=== PATIENT | female | born 1990 | race American Indian/Alaskan Native ===

== ENCOUNTER 2017-01-25 10:08 | Emergency (ER) | payer BC, OTHER ==
[2017-01-25 10:45] VITALS: BP 121/75
--- NOTE | 2017-01-25 11:51 | EDM.PDOC ---
ED HPI GENERAL MEDICAL PROBLEM - General Chief Complaint: [employer] Problem Stated Complaint: 10 WEEKS MIRNA [id number] Time Seen by Provider: 01/25/17 11:48 Source of Information: Reports: Patient History Limitations: Reports: No Limitations - History of Present Illness INITIAL COMMENTS - FREE TEXT/NARRATIVE: Patient abdomen pain X 1 week and dark blood started yesterday and bright blood today Onset Date: 01/18/17 Onset Time: 12:00 Duration: Day(s): Location: Reports: Pelvis Quality: Reports: Ache Severity: Moderate Vaginal Pain Score (Numeric/FACES): 3 - Related Data Allergies Allergy/AdvReac Type Severity Reaction Status Date / Time Penicillins Allergy Unknown Rash Verified 09/01/13 05:23 Home Meds: Home Meds . [No Known Home Meds] 09/01/13 [History] Past Medical History HEENT History: Reports: Impaired Vision - Past Surgical History Female Surgical History: Reports: Section, Oophorectomy Social & Family History - Tobacco Use Smoking Status *Q: Never Smoker Second Hand Smoke Exposure: No - Caffeine Use Caffeine Use: Reports: Tea - Alcohol Use Days Per Week of Alcohol Use: 0 - Recreational Drug Use Recreational Drug Use: No ED ROS GENERAL - Review of Systems Review Of Systems: See Below Constitutional: Reports: No Symptoms HEENT: Reports: No Symptoms Respiratory: Reports: No Symptoms Cardiovascular: Reports: No Symptoms Endocrine: Reports: No Symptoms GI/Abdominal: Reports: No Symptoms : Reports: Other (vaginal bleeding) Musculoskeletal: Reports: No Symptoms Skin: Reports: No Symptoms Neurological: Reports: No Symptoms Psychiatric: Reports: No Symptoms Hematologic/Lymphatic: Reports: No Symptoms Immunologic: Reports: No Symptoms ED EXAM - Physical Exam Exam: See Below Exam Limited By: No Limitations General Appearance: Alert, WD/WN, No Apparent Distress Eye Exam: Bilateral Eye: PERRL Ears: Normal External Exam Nose: Normal Inspection Throat/Mouth: Normal Inspection Head: Atraumatic Neck: Normal Inspection Respiratory/Chest: No Respiratory Distress, Lungs Clear Cardiovascular: Normal Peripheral Pulses, Regular Rate, Rhythm GI/Abdominal Exam: Normal Bowel Sounds, Soft, Non-Tender (Female) Exam: Vaginal Bleeding, Other (dark blood with slow ooze) Movement: Not Appreciated Back Exam: Normal Inspection Extremities: Normal Inspection Neurological: Alert, Oriented, CN II-XII Intact Psychiatric: Normal Affect Skin Exam: Warm, Dry Lymphatic: No Adenopathy Course - Vital Signs Last Recorded V/S: Last Vital Signs Temp 36.8 C 01/25/17 10:44 Pulse 75 01/25/17 10:44 Resp 16 01/25/17 10:44 BP 121/75 01/25/17 10:44 Pulse Ox 99 01/25/17 10:44 - Orders/Labs/Meds Labs: Laboratory Tests 01/25/17 01/25/17 01/25/17 Range/Units 11:17 11:17 11:17 WBC 7.3 (5.0-10.0) 10^3/uL RBC 4.90 (4.2-5.4) 10^6/uL Hgb 13.6 (12.0-16.0) g/dL Hct 41.0 (37.0-47.0) % MCV 83.7 (80-100) fL MCH 27.8 (27.0-34.0) pg MCHC 33.2 (33.0-35.0) g/dL Plt Count 193 (150-450) 10^3/uL Neut % (Auto) 65.9 (42.2-75.2) % Lymph % (Auto) 22.5 (20.5-50.1) % [place] % (Auto) 8.7 H (2-8) % Eos % (Auto) 2.5 (1.0-3.0) % Baso % (Auto) 0.4 (0.0-1.0) % HCG, Quant 13 (0-25) mIU/ml Beta HCG, Quant < 1050 mIU/ml Blood Type O POSITIVE Gel Antibody Screen Negative Departure - Departure Time of Disposition: 12:25 Disposition: Home, Self-Care 01 Condition: Good Clinical Impression: Complete - Discharge Information Forms: ED Department Discharge Additional Instructions: Rest and Increase intake of Fluids ( Juice/Water) Continue taking Pre Vitamins F/U w/ PCP
== END 2017-01-25 12:36 | disposition home or self-care (01) ==
LOC: DL.ED 10:08
DX: O03.9 Complete or unspecified spontaneous abortion without complication (principal); H54.7 Unspecified visual loss; Z90.721 Acquired absence of ovaries, unilateral; Z88.0 Allergy status to penicillin
CPT/HCPCS: 36415; 84702; 85025; 86850; 86900; 86901; 99284

== ENCOUNTER 2023-02-10 16:58 | Emergency (ER) | payer BC, OTHER ==
[2023-02-10 17:19] VITALS: BP 144/102; PULSE 78
[2023-02-10] MEDS: Lactated Ringers 1,000 ML IV SCH ×2 (17:26→18:26)
[2023-02-10] MEDS: Ondansetron 4 MG/2 ML SDV IVPUSH ONE (17:26)
[2023-02-10 17:32] LABS: BASOPHILS PERCENT AUTO 0.5 % (0.0-1.0); EOSINOPHILS PERCENT AUTO 2.1 % (1.0-3.0); HEMATOCRIT 44.3 % (37.0-47.0); HEMOGLOBIN 14.6 g/dL (12.0-16.0); LYMPHOCYTES PERCENT AUTO 17.1 % (20.5-50.1); MEAN CORPUSCULAR HEMOGLOBIN 27.1 pg (27.0-34.0); MEAN CORPUSCULAR VOLUME 82.3 fL (80-100); NEUTROPHILS PERCENT AUTO 71.3 % (42.2-75.2); PLATELET COUNT,PLT 269 10^3/uL (150-450); RED BLOOD CELL COUNT 5.38 10^6/uL (4.2-5.4); WHITE BLOOD CELL COUNT,WBC 11.1 10^3/uL (5.0-10.0)
[2023-02-10 17:52] LABS: A/G RATIO 0.9; ALBUMIN 3.8 g/dL (3.4-5.0); ANION GAP 14.6 mEq/L (7-13); BILIRUBIN TOTAL 0.3 mg/dL (0.2-1.0); CALCIUM 8.9 mg/dL (8.5-10.1); CREATININE 0.88 mg/dL (0.55-1.02); EST CRCL DRUG DOSING (CG) 73.26 mL/min; POTASSIUM,K 3.6 mmol/L (3.5-5.1); PROTEIN TOTAL,TP 7.9 g/dL (6.4-8.2)
[2023-02-10] MEDS: Prochlorperazine 5 MG Tab PO ONE (18:36)
[2023-02-10] MEDS: Ketorolac 30 MG/ML SDV IVPUSH ONE (18:36)
[2023-02-10 18:54] LABS: APPEARANCE,URINE SLIGHTLY CLOUDY (CLEAR); BILIRUBIN,URINE NEGATIVE (NEGATIVE); COLOR,URINE YELLOW (YELLOW); GLUCOSE,URINE NEGATIVE (NEGATIVE); KETONES,URINE NEGATIVE (NEGATIVE); LEUKOCYTE ESTERASE,URINE NEGATIVE (NEGATIVE); NITRITE,URINE NEGATIVE (NEGATIVE); OCCULT BLOOD,URINE NEGATIVE (NEGATIVE); PH,URINE 7.5 (5.0-9.0); PROTEIN,URINE NEGATIVE (NEGATIVE); UROBILINOGEN,URINE 0.2 mg/dL (0.2-1.0)
[2023-02-10] MEDS: Iopamidol 612 MG/ML 100 ML Bottle IVPUSH ONE (19:35)
== END 2023-02-10 20:31 | disposition home or self-care (01) ==
LOC: DL.ED 16:58
DX: N83.202 Unspecified ovarian cyst, left side (principal); K76.0 Fatty (change of) liver, not elsewhere classified; R11.2 Nausea with vomiting, unspecified; R03.0 Elevated blood-pressure reading, without diagnosis of hypertension; Z88.0 Allergy status to penicillin
CPT/HCPCS: 36415; 74177; 80053; 81003; 81025; 83690; 85025; 96361; 96374; 96375; 99284; 99284-25; J1885; J2405; J7120; Q0164; Q9967